=== PATIENT | male | born 1945 | race Asian ===

== ENCOUNTER 2020-10-29 11:46 | Day surgery (SDC) | payer MEDICARE ==
[2020-10-28 10:33] LABS: Hematocrit 47.8 % (35.5-45.6); Hemoglobin 16.4 gm/dl (11.8-15.2); Mean Corpuscular HGB Conc 34 % (32-34); Mean Corpuscular Volume 84 fl (84-94); Platelet Count 113 K/mm3 (140-440); Red Cell Distribution Width 14.6 % (13.2-15.2)
[2020-10-28 10:36] LABS: Alanine Aminotransferase 18 units/L (7-56); Albumin 4.3 g/dL (3.9-5); BUN/Creatinine Ratio 16; Blood Urea Nitrogen 18 mg/dL (9-20); Calcium 9.8 mg/dL (8.4-10.2); Hemolysis Index 16
[~2020-10-29 11:46] MED LIST: SODIUM CHLORIDE 0.9% 500 ML 500 ML ONE
--- NOTE | 2020-10-29 11:58 | Anesthesia Consultation ---
Anesthesia Consult and Med Hx Date of service: 10/29/20 - Airway Anesthetic Teeth Evaluation: Good ROM Head & Neck: Adequate Mental/Hyoid Distance: Adequate Mallampati Class: Class II - Pulmonary Exam CTA: Yes - Cardiac Exam Cardiac Exam: RRR - Pre-Operative Health Status ASA Pre-Surgery Classification: ASA2 Proposed Anesthetic Plan: General - Pulmonary Hx Smoking: No Hx Sleep Apnea: No (ELVIRA PRE SCREEN LOW RISK) - Cardiovascular System Hx Hypertension: No - Central Nervous System Hx Psychiatric Problems: No - Endocrine Hx Non-Insulin Dependent Diabetes: Yes - Hematic Hx Anemia: No - Other Systems Hx Cancer: No
--- NOTE | 2020-10-29 11:58 | Anesthesia Day of Surgery ---
Anesthesia Day of Surgery - Day of Surgery Patient Examined: Yes Patient H&P Reviewed: Yes Patient is NPO: Yes
[2020-10-29] MEDS ORDERED: LACTATED RINGERS 1,000 ML IV SCH (12:00)
[2020-10-29] MEDS ORDERED: MIDAZOLAM 2 MG/2 ML INJ IV NR (12:00)
--- NOTE | 2020-10-29 12:56 | Post Operative Note ---
Date of procedure: 10/29/20 Pre-op diagnosis: burton stone Post-op diagnosis: same Findings: as above Procedure: cysto laser stone rezum Anesthesia: GETA Surgeon: DOM HSIEH Estimated blood loss: minimal Pathology: list (stone) Specimen disposition: given to patient/family Condition: stable Disposition: PACU
--- NOTE | 2020-10-29 12:57 | Discharge Summary ---
Short Stay Discharge Plan Activity: other (no straining ) Weight Bearing Status: Full Weight Bearing Diet: low fat, low cholesterol, low salt Special Instructions: other ([facility] ) Durable Medical Equipment Needed Upon Discharge: other (home with mack ) Follow up with: LUIS UMAÑA MD [Primary Care Provider] - 7 Days DOM HSIEH MD [Staff Physician] - 7 Days
[2020-10-29] MEDS ORDERED: ceFAZolin/STERILE WATER 2 GM/20 ML SYRINGE IV NR (13:00)
[2020-10-29] MEDS ORDERED: propofoL 200 MG/20 ML VIAL IV ONE (13:01)
[2020-10-29] MEDS ORDERED: dexAMETHasone 20 MG/5 ML VIAL ONE (13:06)
[2020-10-29] MEDS ORDERED: KETAMINE/STERILE WATER 50 MG/ML SYRINGE ONE (13:06)
[2020-10-29] MEDS ORDERED: KETOROLAC 30 MG/1 ML INJ ONE (13:06)
[2020-10-29] MEDS ORDERED: ONDANSETRON 4 MG/2 ML INJ ONE (13:06)
[2020-10-29] MEDS ORDERED: WATER FOR IRRIG STERILE 2000 ML IR ONE (14:15)
[2020-10-29] MEDS ORDERED: SODIUM CHLORIDE 0.9% 500 ML IVPB IRRIGATION ONE (14:15)
[2020-10-29] MEDS ORDERED: WATER FOR IRRIG STERILE 1,500 ML BOTTLE IR ONE (14:16)
[2020-10-29 15:14] VITALS: BP 145/84
--- NOTE | 2020-10-29 15:15 | Fluoroscopy Report ---
3 fluoroscopic images submitted Indication: Intraoperative localization Impression: 3 images of the bladder were submitted for documentation purposes with radiology involve ment. Approximately 20 mL of Omnipaque 300 was utilized for this exam. Please refer to the operativ e note for complete details. Fluoroscopic time: 7 seconds Signer Name: Bert Simmons MD Signed: 10/29/2020 3:11 PM Workstation Name: [id number]
[2020-10-29] MEDS ORDERED: SODIUM CHLORIDE IRRI 1000 ML 1,000 ML IR ONE (15:18)
--- NOTE | 2020-10-29 17:10 | Post Anesthesia Evaluation ---
- Post Anesthesia Evaluation Patient Participated: Yes Airway Patent: Yes Stable Respiratory Function: Yes Nausea/Vomiting: No Temp > 96.8F: Yes Pain Manageable: Yes Adequeate Hydration: Yes Anesthesia Complications: No Block Receding Appropriately: Not Applicable Patient on Ventilator: No
--- NOTE | 2020-10-29 17:11 | Operative Report ---
DATE OF SURGERY: 10/29/2020 PREOPERATIVE DIAGNOSES: Very large prostate, bladder stone. POSTOPERATIVE DIAGNOSES: Very large prostate, bladder stone. PROCEDURE: Cystoscopy, laser of stone, stone removal, cystolitholapaxy and 1 Rezum to the middle lobe. SURGEON: Constantine Gimenez MD ANESTHESIA: General. FINDINGS: This is a gentleman who has been followed with a very large prostate. He was found to have a bladder stone, had some difficulty voiding. He now presents for treatment. The prostate is very big. He does not want a full TURP. This is a very vascular prostate. He now presents for treatment. DESCRIPTION OF PROCEDURE: The patient was brought to the OR and placed on the operating table. Following induction of anesthesia, placed in lithotomy position, prepped and draped in the usual sterile fashion. Cystourethroscopy showed very elevated bladder neck with a large middle lobe. Right behind the middle lobe was a 1-1.5 cm stone. This was lasered. The stone had lots of spikes to it, was broken into about 6-8 pieces and evacuated. With all the manipulation, the prostate would ooze and had some bleeding, nothing major. We were able to get the Rezum in and there were some clots, which had to be intermittently evacuated out before we did anything just from the previous manipulation and we decided just to do 1 treatment in the middle lobe. We did not want to inflame this prostate anymore, put him back on his Flomax and see how he does. The patient tolerated the procedure well. A Councill catheter was placed. We left a wire in after the cystoscopy because it was so elevated the bladder neck, we did not want to have difficulty with catheter, 22 [place] easily placed under fluoroscopic guidance in good position. He was brought to recovery in stable condition. TID: [id number] RECEIPT: [id number] PATRICIO/CASS/GAURAV
== END 2020-10-29 15:55 | disposition home or self-care (01) ==
LOC: OR 11:46
PROVIDERS: ATTEND Urology
DX: N40.0 Benign prostatic hyperplasia without lower urinary tract symptoms (principal); N21.0 Calculus in bladder; N40.3 Nodular prostate with lower urinary tract symptoms; E11.9 Type 2 diabetes mellitus without complications; Z98.890 Other specified postprocedural states; Z79.899 Other long term (current) drug therapy
CPT/HCPCS: 36415; 52317; 53854; 74430; 80053; 82962; 85027; A4217; J0690; J1100; J1885; J2405; J2704; J3490; J7040; J7120; Q9967; U0003; C1769